=== PATIENT | female | born 1995 | race Caucasian/White ===

== ENCOUNTER → 2020-09-08 16:20 | Outpatient (CLI) | payer OTHER, SELFPAY ==
--- NOTE | ~2020-09-08 | XR_ITS ---
XR lumbar spine 2-3V DATE: 09/08/2020 16:43 INDICATION: Back pain TECHNIQUE: Standing AP, lateral, coned lateral lumbosacral views COMPARISON: None FINDINGS: There is mild dextroscoliosis of the thoracolumbar spine. No fracture or bone destruction of the lumbar spine. The included lower thoracic and lumbar pedicles are intact. The lumbar and lumbosacral interspaces are well preserved. The sacroiliac joints appear n ormal. IMPRESSION: No significant abnormality Reviewed, dictated and finalized at location A. ASSESSMENT IMPRESSION: No significant abnormality
--- NOTE | ~2020-09-08 | XR_ITS ---
XR thoracic spine 3V DATE: 09/08/2020 16:43 INDICATION: Back pain TECHNIQUE: Standing AP, lateral and swimmer views COMPARISON: None FINDINGS: There is minimal levoscoliosis of the thoracic spine. No fracture or dislocation or bone destruction. The thoracic pedicles are intact. No paraspinal soft tissue thickening. IMPRESSION: Minimal levoscoliosis Reviewed, dictated and finalized at location A. GER ELECTRICAL IMPRESSION: Minimal levoscoliosis
== END ==
PROVIDERS: PCP Physician Assistant; Visit Provider Physician Assistant
DX: M54.9 Dorsalgia, unspecified (principal); M41.84 Other forms of scoliosis, thoracic region
CPT/HCPCS: 72072; 72100

== ENCOUNTER 2023-09-15 15:56 | Outpatient (RCR) | payer BC, SELFPAY | END 2023-12-13 23:59 | disposition home or self-care (01) | LOC: ANHOBOP 15:56 | PROVIDERS: PCP Family Medicine; Visit Provider Obstetrics & Gynecology | DX: Z32.01 Encounter for pregnancy test, result positive (principal) | CPT/HCPCS: 36415; 84702 ==

== ENCOUNTER 2024-04-26 14:52 | Outpatient (RCR) | payer BC, SELFPAY ==
[2024-04-26 16:25] VITALS: BP 107/56; PULSE 91
== END 2024-07-25 23:59 | disposition home or self-care (01) ==
LOC: ANHOBOP 14:52
PROVIDERS: PCP Family Medicine; Visit Provider Obstetrics & Gynecology
DX: O36.8190 Decreased fetal movements, unspecified trimester, not applicable or unspecified (principal); Z3A.00 Weeks of gestation of pregnancy not specified
CPT/HCPCS: 59025

== ENCOUNTER 2024-05-22 12:55 | Inpatient (IN) | payer BC, SELFPAY ==
[2024-05-22] VITALS (56 sets, daily range): BP systolic 120–145; BP diastolic 26–88; PULSE 66–92; TEMP 36.4–36.6; O2SAT 93–100; BMI 46.9
--- NOTE | 2024-05-22 12:55 | LDADM ---
This patient, Aj Antonio, was admitted to Labor/Delivery/Recovery 107 on 05/22/24 at 12:55. Plans for labor, pain management and were discussed with patient. Patient/family oriented to hospital policies and general routines including ID bracelet, bed and alarms, visiting hours, pain management, procedures, bathroom and other care routines, personal items, smoking policy, room service/diet and guest tray routines, infant security routines, and visiting hours. Patient/Family are encouraged to report perceived risks to care and to ask questions if they do not understand what they are told or what they should do. See OBIX for further documentation.
[2024-05-22 13:39] LABS: Basophils Percent Auto 0.1 % (0.2-1.2); Eosinophils Absolute Auto 0.1 K/mm3 (0-0.3); Hemoglobin 12.3 g/dL (12.0-15.0); Immature Granulocyte Absolute 0.03 K/mm3 (0.00-0.031); Immature Granulocyte Percent A 0.3 % (0-0.5); Lymphocytes Absolute Auto 2.64 K/mm3 (0.9-3.2); Mean Corpuscular HGB Conc 33.2 g/dl (32-36); Mean Corpuscular Hemoglobin 29.1 pg (26-34); Mean Corpuscular Volume 87.5 fl (80-100); Mean Platelet Volume 11.5 fl (7.4-10.4); Monocytes Absolute Auto 0.8 K/mm3 (0.1-0.6); Monocytes Percent Auto 7.8 % (2.6-8.5); Neutrophils Absolute Auto 6.2 K/mm3 (1.3-6.7); Neutrophils Percent Auto 63.8 % (45.5-73.1); Platelet Count Result 275 k/mm3 (150-375); Red Blood Count 4.23 M/mm3 (4.2-5.4); Red Cell Distribution Width 14.1 % (11.5-14.5); White Blood Count 9.8 K/mm3 (4.5-10.0)
[2024-05-22 14:30] LABS: HIV 1/2 Ab P24 Ag Result Negative (Negative)
--- NOTE | 2024-05-22 17:16 | WPDANESEPP ---
Anes - Eval Pre Procedure Procedure: Labor Epidural Date/Time: 05/22/24 17:16 Surgeon: Milagros Preop Diagnosis: Labor Epidural Pre Op Diagnosis: Induction of Labor Patient Data Age: 29 Gender: F Height: 1.65 m Weight: 128 kg Last Vital Signs Temp 36.4 C 05/22/24 14:11 Pulse 92 05/22/24 16:02 BP 129/52 L 05/22/24 16:02 O2 Del Method Room Air 05/22/24 13:40 Allergies Allergy/AdvReac Type Severity Reaction Status Date / Time No Known Allergies Allergy Verified 05/22/24 13:51 Home Medications Medication Instructions Recorded Confirmed Type prenat.vits,angelica,dir-wrpk-upbsk 1 tablet 04/24/24 History Laboratory Tests 05/22/24 05/22/24 13:27 13:28 WBC 9.8 K/mm3 (4.5-10.0) RBC 4.23 M/mm3 (4.2-5.4) Hgb 12.3 g/dL (12.0-15.0) Hct 37.0 % (37.0-47.0) MCV 87.5 fl (80-100) MCH 29.1 pg (26-34) MCHC 33.2 g/dl (32-36) RDW 14.1 % (11.5-14.5) Plt Count 275 k/mm3 (150-375) MPV 11.5 H fl (7.4-10.4) Immature Gran % (Auto) 0.3 % (0-0.5) Neut % (Auto) 63.8 % (45.5-73.1) Lymph % (Auto) 27.0 % (18.3-44.2) [place] % (Auto) 7.8 % (2.6-8.5) Eos % (Auto) 1.0 % (0-4.4) Baso % (Auto) 0.1 L % (0.2-1.2) Lymph # (Auto) 2.64 K/mm3 (0.9-3.2) [place] # (Auto) 0.8 H K/mm3 (0.1-0.6) Eos # (Auto) 0.1 K/mm3 (0-0.3) Baso # (Auto) 0.0 K/mm3 (0.0-0.1) Abs Immat Gran (auto) 0.03 K/mm3 (0.00-0.031) Absolute Neuts (auto) 6.2 K/mm3 (1.3-6.7) Absolute Nucleated RBC 0.000 K/mm3 (0.0-0.012) Nucleated RBC % 0.0 % (0.0-0.2) RPR Pending HIV 1&2 Ab/P24 Ag 4thGn Negative (Negative) Blood Type A Positive Antibody Screen Negative : gestational age (JIMBO 05/21/24,) Patient hx anesthesia problems: none Family hx anesthesia problems: none Results Review: All pre-operative results and documents have been reviewed as part of the pre-operative evaluation. [facility] Family History Family History Grandparent Diabetes mellitus Hypertension Family history of coronary artery disease Family history of type 2 diabetes mellitus Other Family history of malignant neoplasm of breast Social History Social History Smoking status: Never smoker Second hand tobacco smoke exposure: No Alcohol intake: never Substance use: never Do You Feel Safe in your Home?: Yes Lack of Transportation: No Lack of Food: Never True Current Housing: I Have Housing Concerned About Future Housing: No Difficulty Paying Gas/Electric Bills: No Difficulty Paying for Meds: No Currently Unemployed: No Education: Bachelor's Degree Difficulty w/ Childcare or Family Care: No Spiritual care concerns: No Exam Day of Procedure 05/22/24 17:16 Patient weight: morbidly obese Heart: regular rate and rhythm Lungs: normal air movement Airway: Mallampati scale class II Neurological: alert and oriented
--- NOTE | 2024-05-22 17:20 | WPDHPUPDATE1 ---
History and Physical Update Update Date/Time: 05/22/24 17:20 29-year-old female, primary, who presented for induction of labor and ruptured Membrane after being put in her room. there is reassuring status. We could continue to observe for the onset of labor. Expectant management. Considering Pitocin within she is ready. History and Physical has been reviewed, including an updated exam of the patient. There are NO changes in the patient's condition. Risks, benefits, and alternatives have been discussed and questions answered. Patient agrees to proceed with procedure.
[2024-05-22 17:55] LABS: Rapid Plasma Reagin Non-Reactive (NonReactive)
[2024-05-22] MEDS: LACTATED RINGERS 1,000 ML 125 ML IV CONT (20:22)
[2024-05-22] MEDS: OXYTOCIN 30 UNITS/NS 500 ML 30 UNITS/500 ML BAG IV CONT (20:25)
[2024-05-23] VITALS (250 sets, daily range): BP systolic 90–151; BP diastolic 46–114; PULSE 59–126; RESP 12–18; TEMP 36.3–37.3; O2SAT 93–100
[2024-05-23] MEDS: LACTATED RINGERS 1,000 ML 125 ML IV CONT ×2 (06:55→12:45)
[2024-05-23] MEDS: AMPICILLIN 2 GM/NS 100 ML 2 GM/100 ML BAG IVPB (08:04)
[2024-05-23] MEDS: CALCIUM CARBONATE (TUMS) 500 MG (200 MG ELEMENTAL) PO (08:04)
[2024-05-23] MEDS: ONDANSETRON INJ 4 MG/2 ML VIAL IV PUSH ×2 (08:04→12:46)
[2024-05-23] MEDS: AMPICILLIN 1 GM/NS 50 ML 1 GM/50 ML BAG IVPB (11:57)
--- NOTE | 2024-05-23 12:38 | PM.IMHP ---
H&P: HPI History of Present Illness Date/Time: 05/23/24 12:38 Chief Complaint: Term Narrative: 29-year-old primipara at term who presented with ruptured membranes. She labored to a cervical dilation of 6. She has been 6 cm for several hours. The baby is not well applied. We have agreed to perform delivery. Her chances of vaginal a very small this point. The patient understands the details of the procedure. The procedure has been explained in detail. She understands the risks. She understands that injuries may occur that result in hospitalization, more surgery, and severe illness. She understands risk of hemorrhage and infection. She denies any chest pain or shortness of breath. She denies any nausea, vomiting, fever, chills. Review of Systems Review of Systems: All systems reviewed & are unremarkable except as noted in HPI and below Constitutional: Constitutional: Denies chills, Denies fatigue, Denies fever(s) and Denies weakness Eyes: Eyes: Denies blurry vision, Denies change in vision, Denies loss of peripheral vision, Denies loss of vision, Denies other visual disturbances and Denies eye pain ENT: Denies vertigo, Denies dizziness, Denies hearing loss, Denies mouth pain, Denies nasal obstruction, Denies neck mass and Denies neck pain Cardiovascular: Cardiovascular: Denies chest pain, Denies diaphoresis, Denies syncope, Denies leg edema and Denies dyspnea Respiratory: Respiratory: Denies chest congestion, Denies cough, Denies hemoptysis, Denies dyspnea and Denies wheezing Gastrointestinal: Gastrointestinal: Denies abdominal pain, Denies constipation, Denies diarrhea, Denies nausea and Denies vomiting Genitourinary: Genitourinary: Denies hematuria, Denies change in libido, Denies nocturia, Denies genital lesions, Denies flank pain and Denies urinary urgency Musculoskeletal: Musculoskeletal: Denies abnormal gait, Denies back pain, Denies myalgias, Denies arthralgias, Denies joint swelling, Denies muscle weakness and Denies neck pain Integumentary/Breasts: Skin/Breast: Denies swelling, Denies breast pain, Denies breast mass, Denies dry skin, Denies nipple discharge, Denies unusual bruising and Denies jaundice Neurologic: Denies Neuro-related abnormal movements, Denies Abnormal speech present, Denies abnormal gait, Denies behavioral changes, Denies confusion, Denies vertigo, Denies dizziness, Denies syncope, Denies loss of vision, Denies memory loss, Denies convulsions and Denies weakness Psychiatric: Psychiatric: Denies abnormal sleep pattern, Denies behavioral changes, Denies change in libido, Denies confusion, Denies depression, Denies anhedonia and Denies memory loss Endocrine: Endocrine: Reports no additional endocrine complaints, Denies change in libido and Denies fatigue Hematologic/Lymphatic: Hematologic/Lymphatic: Reports no additional hematologic/lymphatic complaints Allergic/Immunologic: Allergic/Immunologic: Reports no additional allergic/immunologic complaints and Denies wheezing PMFSH Family History Family History Grandparent Diabetes mellitus Hypertension Family history of coronary artery disease Family history of type 2 diabetes mellitus Other Family history of malignant neoplasm of breast Social History Social History Smoking status: Never smoker Second hand tobacco smoke exposure: No Alcohol intake: never Substance use: never Do You Feel Safe in your Home?: Yes Lack of Transportation: No Lack of Food: Never True Current Housing: I Have Housing Concerned About Future Housing: No Difficulty Paying Gas/Electric Bills: No Difficulty Paying for Meds: No Currently Unemployed: No Education: Bachelor's Degree Difficulty w/ Childcare or Family Care: No Spiritual care concerns: No Meds Home Medications and Allergies Home Medications
--- NOTE | 2024-05-23 12:42 | WPDHPUPDATE1 ---
History and Physical Update Update Date/Time: 05/23/24 12:42 History and Physical has been reviewed, including an updated exam of the patient. There are NO changes in the patient's condition. Risks, benefits, and alternatives have been discussed and questions answered. Patient agrees to proceed with procedure.
[2024-05-23] MEDS: ACETAMINOPHEN 500 MG TABLET 1000 MG PO (12:45)
[2024-05-23] MEDS: ACETAMINOPHEN 500 MG TABLET 1000 MG (12:45)
[2024-05-23] MEDS: AZITHROMYCIN 500 MG/NS 250 ML 500 MG/250 ML BAG 250 MG (12:45)
[2024-05-23] MEDS: FAMOTIDINE 20 MG/2 ML VIAL (12:45)
[2024-05-23] MEDS: AZITHROMYCIN 500 MG/NS 250 ML 500 MG/250 ML BAG 250 MG IVPB (12:45)
[2024-05-23] MEDS: FAMOTIDINE 20 MG/2 ML VIAL IV PUSH (12:46)
[2024-05-23] MEDS: ceFAZolin 3 GM/D5W 100 ML 100 ML IVPB (13:30)
--- NOTE | 2024-05-23 16:33 | OBPPTRN ---
Patient transferred to post room #283 via stretcher. Support person present. Oriented to unit, room, information board, rooming in, admission packet and security measures. Patient verbalizes understanding.
[2024-05-23] MEDS: DEXTROSE 5%/0.45% SOD CHL 1,000 ML 125 ML IV CONT (18:11)
--- NOTE | 2024-05-23 18:20 | PC.NURSE ---
Second bag of Pitocin @125ml/hr finished as this RN was starting her shift but the bag was never scanned in the OCT. D51/2NS now infusing.
[2024-05-23] MEDS: KETOROLAC 15 MG/ML VIAL (*BKC) IV PUSH (20:05)
[2024-05-23] MEDS: ACETAMINOPHEN 325 MG TABLET 650 MG PO (20:05)
[2024-05-24] MEDS: KETOROLAC 15 MG/ML VIAL (*BKC) IV PUSH ×3 (02:03→14:06)
[2024-05-24] MEDS: ACETAMINOPHEN 325 MG TABLET 650 MG PO ×4 (02:03→20:04)
[2024-05-24 04:33] LABS: Basophils Percent Auto 0.2 % (0.2-1.2); Eosinophils Absolute Auto 0.1 K/mm3 (0-0.3); Eosinophils Percent Auto 0.9 % (0-4.4); Hematocrit 31.6 % (37.0-47.0); Hemoglobin 10.1 g/dL (12.0-15.0); Immature Granulocyte Absolute 0.06 K/mm3 (0.00-0.031); Immature Granulocyte Percent A 0.5 % (0-0.5); Lymphocytes Absolute Auto 1.71 K/mm3 (0.9-3.2); Lymphocytes Percent Auto 12.8 % (18.3-44.2); Mean Corpuscular Hemoglobin 28.5 pg (26-34); Mean Platelet Volume 11.2 fl (7.4-10.4); Monocytes Absolute Auto 1.2 K/mm3 (0.1-0.6); Monocytes Percent Auto 8.6 % (2.6-8.5); Neutrophils Absolute Auto 10.2 K/mm3 (1.3-6.7); Platelet Count Result 185 k/mm3 (150-375); Red Blood Count 3.55 M/mm3 (4.2-5.4); Red Cell Distribution Width 14.1 % (11.5-14.5); White Blood Count 13.3 K/mm3 (4.5-10.0)
[2024-05-24 07:43] VITALS: BP 145/93; PULSE 108; RESP 20; TEMP 36.6; O2SAT 99
[2024-05-24] MEDS: SIMETHICONE 80 MG TAB.CHEW PO ×3 (07:56→20:05)
[2024-05-24] MEDS: DOCUSATE SODIUM 100 MG CAPSULE PO (07:56)
[2024-05-24] MEDS: MULTIVIT/MIN/PREN/FOL AC/IRON TABLET 1 TAB PO (07:57)
--- NOTE | 2024-05-24 08:45 | PM.OBPNVD ---
OB - PN: Subj Subjective Date/time seen: 05/24/24 08:45 Patient comments: no complaints, pain well controlled, tolerating diet and flatus present OB - PN: Obj Data Labs 05/24/24 04:20 Labs: Laboratory Results - last 24 hr 05/24/24 04:20 WBC 13.3 H RBC 3.55 L Hgb 10.1 L Hct 31.6 L MCV 89.0 MCH 28.5 MCHC 32.0 RDW 14.1 Plt Count 185 MPV 11.2 H Immature Gran % (Auto) 0.5 Neut % (Auto) 77.0 H Lymph % (Auto) 12.8 L [place] % (Auto) 8.6 H Eos % (Auto) 0.9 Baso % (Auto) 0.2 Lymph # (Auto) 1.71 [place] # (Auto) 1.2 H Eos # (Auto) 0.1 Baso # (Auto) 0.0 Abs Immat Gran (auto) 0.06 H Absolute Neuts (auto) 10.2 H Absolute Nucleated RBC 0.000 Nucleated RBC % 0.0 OB - PN A/P Plan day: 1 Comments: Post Op LTCS - no problems, routine recovery Time Spent With Patient Time: Total time spent is greater than 50% in coordination of care (as documented) at patient's floor/unit and/or counseling patient: Exam Const: General: cooperative, healthy appearing, comfortable and no acute distress Resp: Auscultation: no crackles, no rales, no rhonchi and no wheezes Cardio: Rhythm: regular rhythm Heart sounds: no click and no murmurs GI: Inspection: non-distended Auscultation: normal bowel sounds Extrem: General: normal to inspection, no pedal edema and no calf tenderness
--- NOTE | 2024-05-24 08:46 | W.PM.OBCSD ---
OB - Delivery Note Procedure Delivery date: 05/24/24 Pre-op diagnosis: Arrest of Dilation Post-op Diagnosis: Same Procedure Performed: Primary Surgeon: Alfredo Linares MD Anesthesia type: Epidural Description of Procedure/Findings: The patient was taken the operating room.? She was prepped and draped in dorsal supine position with a leftward tilt.? This was done after spinal anesthetic was applied.? A low-transverse skin incision was made and carried down till of the fascia with the knife.? The fascial incision was made with the knife.? The fascial incision was extended laterally with [place] scissors.? The fascia was tented upward superiorly and inferiorly the rectus muscles were dissected off bluntly.? The rectus muscles were the midline.? The preperitoneal fat and peritoneum were dissected open bluntly at the superior aspect of the rectus muscles.? The peritoneal incision was extended superior and inferior with good position of bladder.? The uterine incision was made with a scalpel down to the level of the amniotic cavity.? The amniotic cavity was entered bluntly.? The was delivered.? The cord was clamped and cut and the was handed off to waiting pediatric staff.? Cord bloods were obtained.? The placenta was removed manually.? The uterus was exteriorized.? The uterus was cleared of all clots, debris and membranes.? The uterus was closed in 0 Vicryl running lock fashion.? An imbricating over a was placed along the incision line as well.? The uterus was returned to the abdomen.? The gutters were cleared of all clots and debris.? The fascia was closed with 0 Vicryl running fashion.? The subcutaneous tissue was irrigated pinpoint bleeders were cauterized.? The skin was closed with subcuticular absorbable octaviano.? The skin incision line was covered with glue.? The patient tolerated the procedure well.? She has taken recovery room in stable condition.? Sponge lap and needle counts were correct x2.? Urine Output: 400
--- NOTE | 2024-05-24 13:00 | WPDANLDPN2 ---
Anes-Prog Note L&D Date/Time: 05/24/24 13:00 Comfortable throughout: labor and section Neuraxial method: epidural Epidural/Spinal procedure site: clean & non-tender Neuro status: Neuro function grossly intact. Cardiovascular status: normal Respiratory status: normal Airway patency: baseline Mental status: baseline Post-Op hydration status: normal Vital Signs: Last Vital Signs Temp 36.6 C 05/24/24 07:43 Pulse 108 H 05/24/24 07:43 Resp 20 05/24/24 07:43 BP 145/93 H 05/24/24 07:43 Pulse Ox 99 05/24/24 07:43 O2 Del Method Room Air 05/23/24 19:10 Pain score (VAS): 2 I/O: Intake & Output 05/23/24 05/24/24 05/24/24 23:59 07:59 15:59 Intake Total 400 1550 Output Total 1025 1250 400 Balance -625 300 -400 Post-procedural complaints: none Patient feedback: Patient satisfied with anesthetic care.
--- NOTE | 2024-05-24 13:00 | WPDANLDNPN2 ---
Anes-Prog Note L&D-Neuraxial Date/Time: 05/24/24 13:00 Neuraxial medications: epidural PF morphine Opiod-related complaints: none Patient feedback: Patient satisfied with post-operative pain management.
[2024-05-24 19:00] VITALS: BP 142/84; PULSE 83; RESP 18; TEMP 36.7
[2024-05-24] MEDS: IBUPROFEN 600 MG TABLET PO (20:04)
[2024-05-25] MEDS: IBUPROFEN 600 MG TABLET PO ×3 (02:00→14:40)
[2024-05-25] MEDS: ACETAMINOPHEN 325 MG TABLET 650 MG PO ×3 (02:00→14:40)
[2024-05-25 08:35] VITALS: BP 135/82; PULSE 80; RESP 16; TEMP 36.8; O2SAT 100
--- NOTE | 2024-05-25 08:40 | PM.OBPNVD ---
OB - PN: Subj Subjective Date/time seen: 05/25/24 08:40 Interval history: POD#2 s/p PLTCS Doing well, pain well controlled Passing flatus Voiding without issue OB - PN: Obj Data Labs 05/24/24 04:20 OB - PN A/P Assessment and Plan (1) S/P : Code(s): Z98.891 - History of uterine scar from previous surgery Status: Acute Plan day: 2 Plan: routine care and discharge home Time Spent With Patient Time: Total time spent is greater than 50% in coordination of care (as documented) at patient's floor/unit and/or counseling patient: Review of Systems Review of Systems: All systems reviewed & are unremarkable except as noted in HPI and below Exam Const: General: comfortable and no acute distress Orientation/consciousness: patient oriented x3 Resp: Effort & Inspection: normal respiratory effort GI: Other: incision c/d/i
--- NOTE | 2024-05-25 08:43 | PM.OBDSVD ---
DS: Admitting Diagnosis Discharge Date 05/25/24 Admitting Diagnosis labor OB - DS: Summary OB Procedures : None OB Procedures Intrapartum: low cervical, transverse OB Procedures: : None Peripartum Data Procedures: Procedures Operation Date: 05/23/24 13:00 Actual Procedure Side Surgeon p Section Alfredo Linares MD Time Spent with Patient Time attestation: Total time spent providing and/or coordinating discharge services: DS: Data Data Completed and Pending Pending studies at discharge: Pending at discharge 05/23/24 13:32 Surgical [PTH] Routine Discharge Plan Discharge Attending physician on discharge: Talha Soria Discharging Clinician: Tlaha Soria Patient Disposition: Home, Self-Care Activity: may shower, may drive after 2 weeks, as tolerated and pelvic rest Diet: as tolerated Patient Instructions: Antibiotic Form Stand Alone Forms: General Discharge Information Follow-up/Referrals: Alfredo Linares MD [Physician] - 1 Week Discharge Medications: New hydrocodone-acetaminophen 5-325 mg Tablet 1 tablet PO Q3H PRN (Reason: Breakthrough Pain Rated 4-6) Qty: 18 0RF docusate sodium 100 mg Capsule 100 mg PO BID Qty: 60 0RF ibuprofen 600 mg Tablet 600 mg PO Q6H Qty: 30 0RF Continued #2 Tablet 1 tablet Date of admission: 05/22/24 12:55 Primary Care Provider: Gretta Kerr Admitting Provider: Alfredo Linares Attending physician on admission: Alfredo Linares Condition: Stable
[2024-05-25] MEDS: DOCUSATE SODIUM 100 MG CAPSULE PO (08:45)
[2024-05-25] MEDS: SIMETHICONE 80 MG TAB.CHEW PO (08:45)
[2024-05-25] MEDS: MULTIVIT/MIN/PREN/FOL AC/IRON TABLET 1 TAB PO (08:45)
--- NOTE | 2024-05-25 10:00 | PC.NURSE ---
Consulted with mother concerning needs and she shared her ability to independently latch infant optimally without pain. Mother is feeding appropriately for growth of and understands stimulating to eat if needed. Mom has concerns about baby getting enough . Encouraged watching for output and swallowing at the breast. Mom has heard some swallows and knows what to look for with transitional stools. has had appropriate feedings in the last 24 hours meets the outcomes for weight, output, blood sugar and jaundice at this time. Reinforced understanding of milk production, transition of milk, signs of adequate intake, transition of stool, prevention/relief of engorgement, plugged ducts, mastitis, responsive watching for feeding cues, the different methods of stimulating infant to breastfeed 1-3 hours after the start of the last feeding, community resources, and when to call a provider using the resource of the feeding sheet along with the mom and baby guide. Mother voiced understanding of the information shared, is confident to continue effectively her at home, when to call for assistance, denies any additional assistance or education at this time. Reported to the Primary RN.
--- NOTE | 2024-05-25 14:20 | PC.NURSE ---
Consulted with patient to assess needs related to . Discussed with mother her successes, concerns and any questions she has. We reviewed working with the , supporting breast, and maintaining a deep latch. Encouraged understanding the benefits of skin to skin, responding to feeding cues, frequencies of feeding 8-12 times in 24 hours (approximately 2-3 hours), duration of feedings, milk production, intake/output feeding sheet and signs of adequate intake encouraging swallowing at the breast. Reviewed positioning and alignment, supporting breast, off-centered (asymmetrical latch) and leading with the chin with big, open, wide gape. Mother latched independently to the [left] breast in [football] position. Education given to the mother of how to visualize the suckling (with good rocking jaw motion) swallows (dropping of the lower jaw) and how to listen for drinking at the breast (the ka sound). The was [able] to maintain latch without discomfort to mother. We looked at baby's bottom lip and it was rolled in, so educated mom on how to tug on his chin to pull the lip out. Resources used to facilitate learning were used from the feeding sheet, Is Baby Getting Enough? handout, and book. Mother voiced understanding of the education shared, to call for assistance if the infant does not latch or if there is discomfort with . She is confident to go home her baby. Reported to the Primary RN.
--- NOTE | 2024-05-25 16:40 | PC.NURSE ---
Patient viewed the discharge video Mother & Baby Care, The First Two Weeks . Patient was given the opportunity and encouraged to ask questions. Patient verbalized understanding of information shared and has been given the mother/baby guide for home reference.
[2024-05-26 11:55] VITALS: BP 129/69; PULSE 69; RESP 18; TEMP 36.7; O2SAT 100
--- NOTE | 2024-05-26 12:00 | PC.NURSE ---
Request to meet with patient after her follow up visit. Patient started supplementing last night because baby wouldn't latch and hadn't had any dirty diapers. Discussed with mom her desires and if she wants to try to put baby back to breast or if she wants to pump and bottle feed. She feels happy with giving baby a bottle because knowing the exact volumes of the feedings gives her peace of mind. Encouraged consistent pumping to continue to support her milk supply. Mother has a double electric pump at home and she agrees with the plan to pump every 3 hours for about 15 minutes. Patient aware that there are ways to get baby to try to latch at the breast if that's her wish, but she feels satisfied to just pump and bottle feed. Parents verbalized understanding of the information shared. Father is very supportive of mom's decision. Parents have the services contact info. and know they can call with any further questions or needs. Reported back to the follow up nurse.
== END 2024-05-25 18:30 | disposition home or self-care (01) | DRG 788 ==
LOC: ANHOB2 05-25 15:01 → ANHLDR 05-26 10:45 → ANHOB2 05-26 10:45
PROVIDERS: Admitting Provider Obstetrics & Gynecology; PCP Family Medicine; Visit Provider Obstetrics & Gynecology
PROC: (CPT 59514; principal; 2024-05-23 13:00)
DX: O77.0 Labor and delivery complicated by meconium in amniotic fluid (principal); Z37.0 Single live birth; Z3A.40 40 weeks gestation of pregnancy; O63.0 Prolonged first stage (of labor)
CPT/HCPCS: 36415; 85025; 86592; 86703; 86850; 86900; 86901; 88307; A9270; G0432; J0290; J0456; J0690; J1885; J2274; J2405; J2590; J2795; J3010; J7120

== ENCOUNTER 2025-07-30 05:22 | Inpatient (IN) | payer BC, SELFPAY ==
[2025-07-30] VITALS (81 sets, daily range): BP systolic 85–150; BP diastolic 56–100; PULSE 46–113; RESP 12–18; TEMP 36.4–37.1; O2SAT 95–100; BMI 42.9
[2025-07-30] MEDS: LACTATED RINGERS 1,000 ML 125 ML IV CONT ×2 (07:30→08:14)
[2025-07-30 08:02] LABS: Hematocrit 39.9 % (37.0-47.0); Hemoglobin 13.0 g/dL (12.0-15.0); Immature Granulocyte Percent A 0.2 % (0-0.5); Lymphocytes Absolute Auto 1.64 K/mm3 (0.9-3.2); Mean Corpuscular HGB Conc 32.6 g/dl (32-36); Mean Corpuscular Hemoglobin 28.1 pg (26-34); Mean Corpuscular Volume 86.2 fl (80-100); Nucleated Red Blood Cells Absolute Auto 0.000 K/mm3 (0.0-0.012); Nucleated Red Blood Cells Perc 0.0 % (0.0-0.2); Platelet Count Result 226 k/mm3 (150-375); Red Blood Count 4.63 M/mm3 (4.2-5.4); White Blood Count 12.2 K/mm3 (4.5-10.0)
[2025-07-30] MEDS: ONDANSETRON INJ 4 MG/2 ML VIAL IV PUSH (08:13)
[2025-07-30] MEDS: ACETAMINOPHEN 500 MG TABLET 1000 MG PO ×3 (08:13→23:35)
[2025-07-30] MEDS: FAMOTIDINE 20 MG/2 ML VIAL IV PUSH (08:13)
[2025-07-30] MEDS: AZITHROMYCIN IV 500 MG in SODIUM CHLORIDE 0.9% IV 250 ML IVPB (08:14)
[2025-07-30] MEDS: ceFAZolin 2 GM in SODIUM CHLORIDE 0.9% IV 50 ML 100 ML IVPB (08:15)
--- NOTE | 2025-07-30 08:40 | LDADM ---
This patient, Aj Antonio, was admitted to Labor/Delivery/Recovery 120 on 07/30/25 at 07:25. Plans for section, pain management and were discussed with patient. Patient/family oriented to hospital policies and general routines including ID bracelet, bed and alarms, visiting hours, pain management, procedures, bathroom and other care routines, personal items, smoking policy, room service/diet and guest tray routines, infant security routines, and visiting hours. Patient/Family are encouraged to report perceived risks to care and to ask questions if they do not understand what they are told or what they should do. See OBIX for further documentation.
--- NOTE | 2025-07-30 08:54 | PM.IMHP2 ---
H&P: HPI History of Present Illness Date/Time: 07/30/25 08:54 Chief Complaint: Labor Narrative: This patient is a 30-year-old multiparous female at term with previous delivery who presented in labor. We have agreed to repeat delivery. She understands risks, benefits, and alternatives. She has completed informed consent process is ready to proceed. The patient understands the details of the procedure. The procedure has been explained in detail. She understands the risks. She understands that injuries may occur that result in hospitalization, more surgery, and severe illness. She understands risk of hemorrhage and infection. She denies any chest pain or shortness of breath. She denies any nausea, vomiting, fever, chills. Review of Systems Review of Systems: All systems reviewed & are unremarkable except as noted in HPI and below Constitutional: Constitutional: Denies chills, Denies fatigue, Denies fever(s) and Denies weakness Eyes: Eyes: Denies blurry vision, Denies change in vision, Denies loss of peripheral vision, Denies loss of vision, Denies other visual disturbances and Denies eye pain ENT: Denies vertigo, Denies dizziness, Denies hearing loss, Denies mouth pain, Denies nasal obstruction, Denies neck mass and Denies neck pain Cardiovascular: Cardiovascular: Denies chest pain, Denies diaphoresis, Denies syncope, Denies leg edema and Denies dyspnea Respiratory: Respiratory: Denies chest congestion, Denies cough, Denies hemoptysis, Denies dyspnea and Denies wheezing Gastrointestinal: Gastrointestinal: Denies abdominal pain, Denies constipation, Denies diarrhea, Denies nausea and Denies vomiting Genitourinary: Genitourinary: Denies hematuria, Denies change in libido, Denies nocturia, Denies genital lesions, Denies flank pain and Denies urinary urgency Musculoskeletal: Musculoskeletal: Denies abnormal gait, Denies back pain, Denies myalgias, Denies arthralgias, Denies joint swelling, Denies muscle weakness and Denies neck pain Integumentary/Breasts: Skin/Breast: Denies swelling, Denies breast pain, Denies breast mass, Denies dry skin, Denies nipple discharge, Denies unusual bruising and Denies jaundice Neurologic: Denies Neuro-related abnormal movements, Denies Abnormal speech present, Denies abnormal gait, Denies behavioral changes, Denies confusion, Denies vertigo, Denies dizziness, Denies syncope, Denies loss of vision, Denies memory loss, Denies convulsions and Denies weakness Psychiatric: Psychiatric: Denies abnormal sleep pattern, Denies behavioral changes, Denies change in libido, Denies confusion, Denies depression, Denies anhedonia and Denies memory loss Endocrine: Endocrine: Reports no additional endocrine complaints, Denies change in libido and Denies fatigue Hematologic/Lymphatic: Hematologic/Lymphatic: Reports no additional hematologic/lymphatic complaints Allergic/Immunologic: Allergic/Immunologic: Reports no additional allergic/immunologic complaints and Denies wheezing FOR[facility], [facility] Family History Family History Grandparent Diabetes mellitus Hypertension Family history of coronary artery disease Family history of type 2 diabetes mellitus Other Family history of malignant neoplasm of breast Social History Social History Smoking status: Never smoker Second hand tobacco smoke exposure: No Alcohol intake: never Substance use: never Lack of Transportation: No Lack of Food: Never True Current Housing: I Have Housing Concerned About Future Housing: No Difficulty Paying Gas/Electric Bills: No Difficulty Paying for Meds: No Currently Unemployed: No Education: Bachelor's Degree Difficulty w/ Childcare or Family Care: No Spiritual care concerns: No Meds Home Medications and Allergies Home Medications ?Medication ?Instructions ?Recorded ?Confirmed ?Type prenat.vits,angelica,[id number] 1 tablet PO DAILY 04/24/24 07/30/25 History Allergies Allergy/AdvReac Type Severity Reaction Status Date / Time No Known Allergies Allergy Verified 07/30/25 08:42 Vital Signs Vital Signs - 24 hr 07/30/25 07:01 07/30/25 07:35 07/30/25 07:37 Pulse Rate 76 77 Blood Pressure 120/61 138/63 Pulse Oximetry 100 07/30/25 07:39 07/30/25 07:40 07/30/25 07:43 Pulse Rate 83 81 Blood Pressure 139/79 136/80 Pulse Oximetry 100 07/30/25 07:45 07/30/25 07:48 07/30/25 07:49 Pulse Rate 83 80 Blood Pressure 138/64 137/60 Pulse Oximetry 99 99 07/30/25 07:51 07/30/25 07:53 07/30/25 07:54 Pulse Rate 82 84 Blood Pressure 127/56 L 131/57 L Pulse Oximetry 99 07/30/25 07:57 07/30/25 07:58 07/30/25 08:00 Pulse Rate 89 82 Blood Pressure 137/65 128/66 Pulse Oximetry 99 07/30/25 08:03 07/30/25 08:06 07/30/25 08:08 Pulse Rate 82 81 Blood Pressure 132/68 141/76 H Pulse Oximetry 99 100 07/30/25 08:10 07/30/25 08:12 07/30/25 08:13 Pulse Rate 84 77 Blood Pressure 142/59 H 145/66 H Pulse Oximetry 100 07/30/25 08:15 07/30/25 08:18 07/30/25 08:23 Pulse Rate 80 78 Blood Pressure 141/56 H 133/65 Pulse Oximetry 100 100 07/30/25 08:28 07/30/25 08:30 07/30/25 08:33 Pulse Rate 79 Blood Pressure 150/85 H Pulse Oximetry 100 100 07/30/25 08:34 07/30/25 08:39 07/30/25 08:44 Pulse Rate Blood Pressure Pulse Oximetry 99 100 98 07/30/25 08:46 07/30/25 08:49 07/30/25 08:54 Pulse Rate 82 Blood Pressure 129/63 Pulse Oximetry 98 100 Exam Const: General: cooperative, healthy appearing, comfortable and no acute distress Orientation/consciousness: oriented to person, oriented to place and oriented to time HENMT: Head: normal to inspection Ears: external ears normal Face/Nose/Sinus: Normal external nose present and normal facial exam Face and sinus: normal facial exam Eyes: General: appearance normal, both eyes and all related structures Neck: Neck: normal visual inspection, trachea midline and supple Resp: Auscultation: clear to auscultation bilaterally, no crackles, no rales, no rhonchi and no wheezes Cardio: Rate: regular rate Rhythm: regular rhythm Heart sounds: no click, no murmurs and no rubs GI: GI Palp: No abdominal tenderness, No Soft to palpation, No Tenderness to palpation present (GI) and No Palpable mass present Auscultation: normal bowel sounds Skin: General skin exam: normal color and no rashes or lesions noted Neuro: General: oriented to person, oriented to place and oriented to time Extrem: General: normal to inspection, no joint enlargement, no clubbing, cyanosis or edema, no pedal edema and no calf tenderness Psych: Appearance: grossly normal Mental Status: mental status grossly normal Speech and movement: Normal speech and movement present Results Labs Labs: Short CBC 07/30/25 Range/Units 07:32 WBC 12.2 H (4.5-10.0) K/mm3 Hgb 13.0 (12.0-15.0) g/dL Hct 39.9 (37.0-47.0) % Plt Count 226 (150-375) k/mm3 Assessment and Plan Assessment and plan (1) Previous delivery, delivered: Code(s): O34.219 - Maternal care for unspecified type scar from previous delivery Status: Acute Assessment and Plan: This patient is a 30-year-old multiparous female at term with previous delivery who presented in labor. We have agreed to repeat delivery. She understands risks, benefits, and alternatives. She has completed informed consent process is ready to proceed.
--- NOTE | 2025-07-30 08:56 | WPDHPUPDATE1 ---
History and Physical Update Update Date/Time: 07/30/25 08:56 History and Physical has been reviewed, including an updated exam of the patient. There are NO changes in the patient's condition. Risks, benefits, and alternatives have been discussed and questions answered. Patient agrees to proceed with procedure.
[2025-07-30 09:02] LABS: Syphilis IgG/IgM Antibody Non-Reactive (Nonreactive)
--- NOTE | 2025-07-30 09:33 | WPDANESEPPF ---
Anes - Initial Pre Proc Eval Procedure: Operation Date: 07/30/25 09:30 Proposed Procedures p Repeat Section - Alfredo Linares MD Date/Time: 07/30/25 09:33 Surgeon: Alfredo Linares MD Pre Op Diagnosis: Contractions Patient Data Age: 30 Gender: F Height: 1.65 m Weight: 117 kg Last Vital Signs Temp 97.6 F 07/30/25 06:30 Pulse 82 07/30/25 09:31 BP 130/57 L 07/30/25 09:31 Pulse Ox 100 07/30/25 09:29 Allergies Allergy/AdvReac Type Severity Reaction Status Date / Time No Known Allergies Allergy Verified 07/30/25 08:42 Home Medications ?Medication ?Instructions ?Recorded ?Confirmed ?Type prenat.vits,angelica,[id number]-rbrmj 1 tablet PO DAILY 04/24/24 07/30/25 History Laboratory Tests 07/30/25 07/30/25 07:32 09:24 WBC 12.2 H K/mm3 (4.5-10.0) RBC 4.63 M/mm3 (4.2-5.4) Hgb 13.0 g/dL (12.0-15.0) Hct 39.9 % (37.0-47.0) MCV 86.2 fl (80-100) MCH 28.1 pg (26-34) MCHC 32.6 g/dl (32-36) RDW 13.7 % (11.5-14.5) Plt Count 226 k/mm3 (150-375) MPV 10.9 H fl (7.4-10.4) Immature Gran % (Auto) 0.2 % (0-0.5) Neut % (Auto) 79.7 H % (45.5-73.1) Lymph % (Auto) 13.5 L % (18.3-44.2) [place] % (Auto) 6.1 % (2.6-8.5) Eos % (Auto) 0.3 % (0-4.4) Baso % (Auto) 0.2 % (0.2-1.2) Lymph # (Auto) 1.64 K/mm3 (0.9-3.2) [place] # (Auto) 0.7 H K/mm3 (0.1-0.6) Eos # (Auto) 0.0 K/mm3 (0-0.3) Baso # (Auto) 0.0 K/mm3 (0.0-0.1) Abs Immat Gran (auto) 0.03 K/mm3 (0.00-0.031) Absolute Neuts (auto) 9.7 H K/mm3 (1.3-6.7) Absolute Nucleated RBC 0.000 K/mm3 (0.0-0.012) Nucleated RBC % 0.0 % (0.0-0.2) POC Capillary Glucose 84 mg/dl (65-105) Syphilis IgG/IgM Ab Non-reactive (Nonreactive) Blood Type A Positive Antibody Screen Negative Patient hx anesthesia problems: none Family hx anesthesia problems: none Results Review: All pre-operative results and documents have been reviewed as part of the pre-operative evaluation. [facility] Family History Family History Grandparent Diabetes mellitus Hypertension Family history of coronary artery disease Family history of type 2 diabetes mellitus Other Family history of malignant neoplasm of breast Social History Social History Smoking status: Never smoker Second hand tobacco smoke exposure: No Alcohol intake: never Substance use: never Lack of Transportation: No Lack of Food: Never True Current Housing: I Have Housing Concerned About Future Housing: No Difficulty Paying Gas/Electric Bills: No Difficulty Paying for Meds: No Currently Unemployed: No Education: Bachelor's Degree Difficulty w/ Childcare or Family Care: No Spiritual care concerns: No Anes - Eval Final PreProcedure Day of Procedure 07/30/25 09:33 Patient weight: obese Lungs: normal air movement Airway: Mallampati scale class II Neurological: alert and oriented Last oral intake: >/= 8 hours ASA classification: III Emergent: no Anesthetic plan: proceed Anesthesia type and monitoring: regional epidural and spinal and standard monitoring Results Review: All pre-operative results and documents have been reviewed as part of the pre-operative evaluation. Plt 226. Informed Consent: The patient's anesthetic plan and its attendant risks and benefits were discussed with the patient/family/POA. Questions were solicited and answers provided to the satisfaction of the patient/family/POA.
--- NOTE | 2025-07-30 11:14 | W.PM.OBCSD ---
OB - Delivery Note Procedure Delivery date: 07/30/25 Pre-op diagnosis: Previous Delivery Post-op Diagnosis: Same Procedure Performed: Repeat Surgeon: Alfredo Linares MD Anesthesia type: Epidural Description of Procedure/Findings: FINDINGS-MEMBRANES BULGING THROUGH AN OPEN UTERINE SCAR, UPON ENTERING THE ABDOMEN THIS WAS NOTED. NO BLOOD NOTED WITHIN THE ABDOMEN.. The patient was taken the operating room.? She was prepped and draped in dorsal supine position with a leftward tilt.? This was done after spinal anesthetic was applied.? A low-transverse skin incision was made and carried down till of the fascia with the knife.? The fascial incision was made with the knife.? The fascial incision was extended laterally with Calixto scissors.? The fascia was tented upward superiorly and inferiorly the rectus muscles were dissected off bluntly.? The rectus muscles were the midline.? The preperitoneal fat and peritoneum were dissected open bluntly at the superior aspect of the rectus muscles.? The peritoneal incision was extended superior and inferior with good position of bladder.? ? The amniotic cavity was entered bluntly.? The infant was delivered.? The cord was clamped and cut and the was handed off to waiting pediatric staff.? Cord bloods were obtained.? The placenta was removed manually.? The uterus was exteriorized.? The uterus was cleared of all clots, debris and membranes.? The uterus was closed in 0 Vicryl running lock fashion.? An imbricating over a was placed along the incision line as well.? The uterus was returned to the abdomen.? The gutters were cleared of all clots and debris.? The fascia was closed with 0 Vicryl running fashion.? The subcutaneous tissue was irrigated pinpoint bleeders were cauterized.? The skin was closed with subcuticular absorbable octaviano.? The skin incision line was covered with glue.? The patient tolerated the procedure well.? She has taken recovery room in stable condition.? Sponge lap and needle counts were correct x2.?
[2025-07-30] MEDS: OXYTOCIN 30 UNITS/NS 500 ML 30 UNITS/500 ML BAG 125 UNITS IV CONT (12:24)
--- NOTE | 2025-07-30 14:06 | OBPPTRN ---
1333- Patient transferred to post room #282 via stretcher. Support person present. Oriented to unit, room, information board, rooming in, admission packet and security measures. Patient verbalizes understanding.
[2025-07-30] MEDS: DOCUSATE SODIUM 100 MG CAPSULE PO (16:29)
[2025-07-30] MEDS: SIMETHICONE 80 MG TAB.CHEW PO (16:29)
[2025-07-30] MEDS: KETOROLAC 15 MG/ML VIAL (*BKC) IV PUSH ×2 (16:29→23:35)
--- NOTE | 2025-07-30 17:51 | PC.NURSE ---
1715- this RN spoke with Dr. Linares regarding pts itching-order received for benadryl 25mg IVP q 4 PRN.
[2025-07-30] MEDS: DEXTROSE 5%/0.45% SOD CHL 1,000 ML 125 ML IV CONT (18:00)
[2025-07-31 04:51] LABS: Hematocrit 31.8 % (37.0-47.0); Hemoglobin 10.2 g/dL (12.0-15.0); Immature Granulocyte Percent A 0.5 % (0-0.5); Lymphocytes Absolute Auto 2.02 K/mm3 (0.9-3.2); Mean Corpuscular HGB Conc 32.1 g/dl (32-36); Mean Corpuscular Hemoglobin 28.3 pg (26-34); Mean Corpuscular Volume 88.3 fl (80-100); Nucleated Red Blood Cells Absolute Auto 0.000 K/mm3 (0.0-0.012); Nucleated Red Blood Cells Perc 0.0 % (0.0-0.2); Platelet Count Result 173 k/mm3 (150-375); Red Blood Count 3.60 M/mm3 (4.2-5.4); White Blood Count 8.8 K/mm3 (4.5-10.0)
[2025-07-31] MEDS: ACETAMINOPHEN 500 MG TABLET 1000 MG PO ×4 (05:46→23:30)
[2025-07-31] MEDS: IBUPROFEN 600 MG TABLET PO ×4 (05:46→23:30)
[2025-07-31] MEDS: MULTIVIT/MIN/PREN/FOL AC/IRON TABLET 1 TAB PO (09:11)
[2025-07-31] MEDS: DOCUSATE SODIUM 100 MG CAPSULE PO ×2 (09:11→17:39)
[2025-07-31] MEDS: SIMETHICONE 80 MG TAB.CHEW PO ×3 (09:12→17:39)
[2025-07-31 09:15] VITALS: BP 108/71; PULSE 73; RESP 16; TEMP 36.9
--- NOTE | 2025-07-31 11:04 | PM.OBPNVD ---
OB - PN: Subj Subjective Date/time seen: 07/31/25 11:04 Patient comments: no complaints, pain well controlled, tolerating diet and flatus present OB - PN: Obj Data Labs 07/31/25 04:04 Labs: Laboratory Results - last 24 hr 07/31/25 04:04 WBC 8.8 RBC 3.60 L Hgb 10.2 L Hct 31.8 L MCV 88.3 MCH 28.3 MCHC 32.1 RDW 13.9 Plt Count 173 MPV 10.9 H Immature Gran % (Auto) 0.5 Neut % (Auto) 64.7 Lymph % (Auto) 23.1 [place] % (Auto) 11.0 H Eos % (Auto) 0.5 Baso % (Auto) 0.2 Lymph # (Auto) 2.02 [place] # (Auto) 1.0 H Eos # (Auto) 0.0 Baso # (Auto) 0.0 Abs Immat Gran (auto) 0.04 H Absolute Neuts (auto) 5.7 Absolute Nucleated RBC 0.000 Nucleated RBC % 0.0 OB - PN A/P Plan day: 1 Comments: Post Op LTCS - no problems, routine recovery Time Spent With Patient Time: Total time spent is greater than 50% in coordination of care (as documented) at patient's floor/unit and/or counseling patient: Exam Const: General: cooperative, healthy appearing, comfortable and no acute distress Resp: Auscultation: no crackles, no rales, no rhonchi and no wheezes Cardio: Rhythm: regular rhythm Heart sounds: no click and no murmurs GI: Inspection: non-distended Auscultation: normal bowel sounds Extrem: General: normal to inspection, no pedal edema and no calf tenderness
[2025-07-31 19:34] VITALS: BP 120/68; PULSE 68; RESP 18; TEMP 36.8; O2SAT 98
[2025-08-01] MEDS: ACETAMINOPHEN 500 MG TABLET 1000 MG PO ×2 (05:30→12:15)
[2025-08-01] MEDS: IBUPROFEN 600 MG TABLET PO ×2 (05:30→12:16)
--- NOTE | 2025-08-01 09:07 | WPDANLDPN2 ---
Anes-Prog Note L&D Date/Time: 08/01/25 09:07 Comfortable throughout: labor and section Neuraxial method: epidural Epidural/Spinal procedure site: clean & non-tender Neuro status: Neuro function grossly intact. Cardiovascular status: normal Respiratory status: normal Airway patency: baseline Mental status: baseline Post-Op hydration status: normal Vital Signs: Last Vital Signs Temp 98.2 F 07/31/25 19:34 Pulse 68 07/31/25 19:34 Resp 18 07/31/25 19:34 BP 120/68 07/31/25 19:34 Pulse Ox 98 07/31/25 19:34 O2 Del Method Room Air 07/30/25 13:15 Pain score (VAS): 2 I/O: Intake & Output 07/31/25 08/01/25 08/01/25 23:59 07:59 15:59 Intake Total 300 Balance 300 Post-procedural complaints: pruritis moderate, treatment effective Patient feedback: Patient satisfied with anesthetic care.
--- NOTE | 2025-08-01 09:08 | WPDANLDNPN2 ---
Anes-Prog Note L&D-Neuraxial Date/Time: 08/01/25 09:08 Neuraxial medications: epidural PF morphine Opiod-related complaints: pruritis moderate, treatment effective Patient feedback: Patient satisfied with post-operative pain management.
[2025-08-01 09:20] VITALS: BP 127/77; PULSE 73; RESP 18; TEMP 36.6
[2025-08-01] MEDS: MULTIVIT/MIN/PREN/FOL AC/IRON TABLET 1 TAB PO (09:21)
[2025-08-01] MEDS: SIMETHICONE 80 MG TAB.CHEW PO ×2 (09:21→12:16)
[2025-08-01] MEDS: DOCUSATE SODIUM 100 MG CAPSULE PO (09:21)
--- NOTE | 2025-08-01 11:19 | P.PNOB_ITS ---
OB - PN: Subj Subjective Date/time seen: 08/01/25 11:19 Patient comments: no complaints, pain well controlled, incisional pain, tolerating diet and flatus present OB - PN: Obj Data Labs 07/31/25 04:04 OB - PN A/P Plan day: 2 Plan: routine care Comments: POD#2 LTCS - no problems, Time Spent With Patient Time: Total time spent is greater than 50% in coordination of care (as documented) at patient's floor/unit and/or counseling patient: Exam 2 Const: General: comfortable, no acute distress and alert Resp: Effort & Inspection: normal respiratory effort Auscultation: no crackles, no rales and no rhonchi Cardio: Rate: regular rate Heart sounds: no click, no murmurs and no rubs GI: Inspection: non-distended Auscultation: normal bowel sounds Other: Incision - CDI Extrem: General: normal to inspection, no pedal edema and no calf tenderness
--- NOTE | 2025-08-01 11:20 | P.DS_ITS ---
DS: Admitting Diagnosis Discharge Date 08/01/2025 Admitting Diagnosis Term , previous DS: Discharge Diagnosis Discharge Diagnosis (1) S/P : Code(s): Z98.891 - History of uterine scar from previous surgery Status: Acute OB - DS: Summary OB Procedures : None OB Procedures Intrapartum: OB Procedures: : None Peripartum Data Procedures: Procedures Operation Date: 07/30/25 09:30 Actual Procedure Side Surgeon p Repeat Section Not Applicable Alfredo Linares MD Time Spent with Patient Time attestation: Total time spent providing and/or coordinating discharge services: Discharge Plan Discharge Discharging Clinician: Alfredo Linares Patient Disposition: Home Activity: pelvic rest Diet: regular Discharge Instructions: Education: Mom and Baby Guide Given to: Mother Follow-Up: Call your delivering provider's office for an appointment to be seen in: 1 Week Mom and baby should come to the [facility] for the follow-up appointment. Appointment Date/Time: August 03, 2025 at 11:00 am What to expect at your follow-up visit: Blood Pressure Check, Physical Assessment Call [phone] if you are unable to keep your appointment time. BREAST CARE: * Wear a snug supportive bra. * For engorgement discomfort: Bottle Feeding: * May apply ice packs ABDOMINAL INCISION: (if applicable) * Allow incision to air dry * Do NOT use lotions for powders on your incision * When showering, allow soap and water to run over the incision, but do not wash incision EPISIOTOMY/PERINEAL CARE: * Until bleeding stops, use your juvenal bottle after urinating * Change your pad frequently throughout the day * No tub baths until seen by your physician - You may shower ACTIVITY: * Rest as much as possible. * Do not exercise or lift anything heavier than your baby (such as laundry or other children.) * Avoid stairs or driving as much as possible. * Do not put anything into the vagina. No douching, tampons, or sexual activity until seen by physician. NOTIFY PHYSICIAN IF YOU HAVE ANY QUESTIONS OR IF ANY OF THE FOLLOWING SYMPTOMS OCCUR: * If your incision becomes red, swollen, or more painful than what you have experienced in the hospital. * If your vaginal bleeding becomes foul smelling. * If your vaginal bleeding becomes more heavy than a period or if your bleeding changes from pink to bright red. However, you may pass an occasional walnut- sized clot once or twice for the first week . * If you experience a sharp, shooting pain in you calves. * If you discover a hard, reddened area on your breast or if you experience flu- like symptoms. DIET: * Eat regular, well-balanced meals. * Drink plenty of fluids daily. If , drink to thirst. Patient Instructions: Antibiotic Form Patient Language: [place] Stand Alone Forms: General Discharge Information Follow-up/Referrals: Alfredo Linares MD [Physician, [employer]] Discharge Medications: Continued prenat.vits,angelica,[id number] Tablet 1 tablet PO DAILY Date of admission: 07/30/25 07:25 Primary Care Provider: Gretta Kerr Admitting Provider: Alfredo Linares Attending physician on admission: Alfredo Linares Condition: Stable
[2025-08-03 11:24] VITALS: BP 128/70; PULSE 79; RESP 18; TEMP 36.6; O2SAT 100
== END 2025-08-01 12:50 | disposition home or self-care (01) | DRG 788 ==
LOC: ANHLDR 09:30 → ANHOB2 13:35
PROVIDERS: Admitting Provider Obstetrics & Gynecology; PCP Family Medicine; Visit Provider Obstetrics & Gynecology
PROC: 10D00Z1 Extraction of Products of Conception, Low, Open Approach (ICD-10-PCS; CPT 59514; principal; 2025-07-30 09:30)
DX: O24.429 Gestational diabetes mellitus in childbirth, unspecified control (principal); O34.211 Maternal care for low transverse scar from previous cesarean delivery; Z3A.38 38 weeks gestation of pregnancy; Z37.0 Single live birth; O77.0 Labor and delivery complicated by meconium in amniotic fluid
CPT/HCPCS: 36415; 82948; 85025; 86593; 86850; 86900; 86901; J0690; A9270; J0456; J1171; J1200; J1596; J1885; J2003; J2274; J2371; J2405; J2590; J2795; J7050; J7120